=== PATIENT | female | born 1970 | race Caucasian/White ===

== ENCOUNTER 2025-08-09 09:29 | Outpatient (CLI) | payer OTHER, SELFPAY ==
--- NOTE | ~2025-08-09 | XR_ITS ---
Examination: XR chest 2V Clinical History: rib pain on left side Comparison: None Technique: PA and Lateral Findings: Cardiomediastinal silhouette normal size and configuration. Lungs clear. No acute bony abnormality. IMPRESSION: 1. No acute cardiopulmonary findings. Reviewed, dictated and finalized at location R. ER TENDER
== END 2025-08-09 09:30 | disposition home or self-care (01) ==
PROVIDERS: PCP Pediatrics; Visit Provider Pediatrics
DX: R07.89 Other chest pain (principal)
CPT/HCPCS: 71046

== ENCOUNTER 2025-08-12 14:27 | Outpatient (CLI) | payer OTHER, SELFPAY ==
--- NOTE | ~2025-08-12 | XR_ITS ---
XR lumbar spine 6V w bending Indication: Lumbar spine pain Comparison: None Findings: Minimal grade 1 retrolisthesis of L2 on L3 and L3 on L4. No acute fracture, no subluxation with flexion and extension Moderate loss of disc at L5-S1. Soft tissues unremarkable Impression: No acute abnormality. Reviewed, dictated and finalized at location P. BOX MAKER Impression: No acute abnormality.
--- NOTE | ~2025-08-12 | XR_ITS ---
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 Findings: No acute fracture or malalignment. Sclerosis of the sacroiliac joints, no bridging osteophyte formation or erosions identified. Soft tissues unremarkable. Impression: No acute fracture or malalignment. Reviewed, dictated and finalized at location P. STAND LOADER Impression: No acute fracture or malalignment.
== END 2025-08-12 14:28 | disposition home or self-care (01) ==
LOC: MICIMG 14:31
PROVIDERS: PCP Pediatrics; Visit Provider Nurse Practitioner Family
DX: M54.50 Low back pain, unspecified (principal)
CPT/HCPCS: 72114; 72202